=== PATIENT | female | born 1995 | race Caucasian/White ===

== ENCOUNTER 2018-07-04 09:08 | Emergency (ER) | payer OTHER ==
[~2018-07-04] VITALS: Ht 157.5 cm; Wt 65.0 kg
[2018-07-04 09:13] VITALS: TEMP 98.9
[2018-07-04] MEDS ORDERED: BUSPIRONE HCL7.5 MG PO (09:53)
[2018-07-04] MEDS ORDERED: WELLBUTRIN XL300 M1 PO (09:53)
[2018-07-04 11:00] VITALS: BP 118/70; PULSE 80
== END 2018-07-04 11:05 | disposition home or self-care (01) ==
LOC: COL.ER 09:08
DX: G43.909 Migraine, unspecified, not intractable, without status migrainosus (principal); R11.2 Nausea with vomiting, unspecified; F12.90 Cannabis use, unspecified, uncomplicated; F41.9 Anxiety disorder, unspecified
CPT/HCPCS: J1885; J2405